=== PATIENT | male | born 1985 | race Caucasian/White ===

== ENCOUNTER 2020-07-27 21:47 | Emergency (ER) | payer MEDICAID ==
[~2020-07-27] VITALS: Ht 175.3 cm; Wt 160.3 kg
[2020-07-27 22:38] LABS: BASO % 0.3 % (0.0-2.0); EOS % 0.3 % (0-4.0); GRAN # 8.3 (1.4-6.5); GRAN % 79.5 % (42.2-75.2); HEMATOCRIT 34.5 % (42.0-52.0); LYMPH # 1.2 (1.2-3.4); LYMPH % 11.8 % (20.0-51.0); MEAN CELL VOLUME 75 fl (80.0-100.0); MEAN CORPUSCULAR HEMOGLOBIN 22 pg (27.0-31.0); MEAN CORPUSCULAR HGB CONC 29 g/dl (33.0-37.0); MEAN PLATELET VOLUME 10.1 fl (7.4-10.4); MONO # 0.8 (0.1-0.6); MONO % 7.8 % (1.7-9.3); PLATELET COUNT 292 K/mm3 (130-400); RED BLOOD COUNT 4.58 M/mm3 (4.20-5.60)
[2020-07-27 22:49] LABS: ALANINE AMINOTRANSFERASE 13 U/L (4-49); ALKALINE PHOSPHATASE 70 U/L (50-136); ANION GAP 7 mmol/L (7-16); AST,SGOT 17 U/L (15-37); BILIRUBIN,TOTAL 0.7 mg/dL (0.0-1.0); BLOOD UREA NITROGEN 23 mg/dL (9-20); CALCIUM 8.9 mg/dL (8.4-10.2); CARBON DIOXIDE 32 mmol/L (22-30); CHLORIDE 98 mmol/L (98-107); CREATININE, serum 1.27 (0.66-1.25); GLUCOSE 107 mg/dL (74-106); LIPASE 92 U/L (23-300); POTASSIUM 4.2 mmol/L (3.4-5.0); SODIUM 138 mmol/L (137-145); TOTAL PROTEIN 7.6 gm/dL (6.4-8.2)
[2020-07-27] MEDS ORDERED: ENTOCORT EC3 MG PO (22:49)
[2020-07-27] MEDS ORDERED: ZYRTEC 10MG10 MG PO (22:50)
[2020-07-27] MEDS ORDERED: PRINZIDE 25 MG-1 TAB PO (22:51)
[2020-07-27] MEDS ORDERED: PRILOTC (22:51)
[2020-07-27] MEDS ORDERED: LEXAPRO20 MG PO (22:52)
[2020-07-27] MEDS ORDERED: INVEGA3 MG PO (22:52)
[2020-07-27] MEDS ORDERED: DESYREL DIVIDO150 M1 PO (22:53)
[2020-07-27 23:00] LABS: TROPONIN-I < 0.012 ng/mL (0.000-0.035)
[2020-07-27 23:14] LABS: MUCOUS Present /lpf; PH 5 (5-8); SQUAMOUS EPITHELIAL None Seen /hpf; URINE APPEARANCE Clear; URINE BACTERIA Rare /hpf; URINE BILIRUBIN Negative (NEGATIVE); URINE BLOOD 1+ (NEGATIVE); URINE COLOR Yellow; URINE GLUCOSE Negative (NEGATIVE); URINE KETONE Negative (NEGATIVE); URINE LEUKOCYTE ESTERASE Negative (NEGATIVE); URINE NITRATE Negative (NEGATIVE); URINE PROTEIN(semi-quant) Negative (NEGATIVE); URINE UROBILINOGEN Negative (NEGATIVE)
[2020-07-27 23:33] LABS: COLLECTION METHOD CLEAN CATCH
[2020-07-28] MEDS ORDERED: ZOFRAN 4MG T4 MG/TAB PO (00:27)
[2020-07-28] MEDS ORDERED: MEDROL 4MG DOSPA4 MG PO (00:27)
[2020-07-28 01:10] VITALS: BP 134/68; PULSE 86; TEMP 98.4
== END 2020-07-28 01:13 | disposition home or self-care (01) ==
LOC: COL.ER 21:47
PROVIDERS: Nurse Practitioner Primary Care
DX: R10.10 Upper abdominal pain, unspecified (principal); R55 Syncope and collapse; I10 Essential (primary) hypertension; F31.9 Bipolar disorder, unspecified; F25.9 Schizoaffective disorder, unspecified; Z88.8 Allergy status to other drugs, medicaments and biological substances; Z79.51 Long term (current) use of inhaled steroids
CPT/HCPCS: C9113; J1100; J2270; J2405; J7030

== ENCOUNTER 2021-09-07 18:37 | Emergency (ER) | payer MEDICAID ==
[~2021-09-07] VITALS: Ht 175.3 cm; Wt 130.5 kg
[~2021-09-07 18:37] MED LIST: DESYREL DIVIDO150 M1 PO; ENTOCORT EC3 MG PO; INVEGA3 MG PO; LEXAPRO20 MG PO; MEDROL 4MG DOSPA4 MG PO; PRILOTC; PRINZIDE 25 MG-1 TAB PO; ZOFRAN 4MG T4 MG/TAB PO; ZYRTEC 10MG10 MG PO
[2021-09-07 18:42] VITALS: TEMP 97.9
[2021-09-07 19:29] LABS: BASO % 0.4 % (0.0-2.0); EOS # 0.1 K/mm3 (0.0-0.7); EOS % 0.6 % (0.0-4.0); GRAN # 6.5 K/mm3 (1.4-6.5); GRAN % 70.2 % (42.2-75.2); HEMATOCRIT 39.3 % (42.0-52.0); HEMOGLOBIN 11.9 g/dl (13.5-18.0); LYMPH # 1.6 K/mm3 (1.2-3.4); LYMPH % 16.8 % (20.0-51.0); MEAN CELL VOLUME 80 fl (80.0-100.0); MEAN CORPUSCULAR HEMOGLOBIN 24 pg (27-31); MEAN CORPUSCULAR HGB CONC 30 g/dl (33.0-37.0); MEAN PLATELET VOLUME 10.2 fl (7.4-10.4); MONO # 1.1 K/mm3 (0.1-0.6); MONO % 11.7 % (1.7-9.3); PLATELET COUNT 251 K/mm3 (130-400); RED BLOOD COUNT 4.94 M/mm3 (4.20-5.60); REDCELL DISTRIBUTION WIDTH-CV 13.2 % (11.5-14.5)
[2021-09-07 19:47] LABS: ALBUMIN 3.3 gm/dL (3.5-5.0); BILIRUBIN,TOTAL 1.9 mg/dL (0.2-1.2); CALCIUM 8.6 mg/dL (8.4-10.2); CREATININE, serum 1.03 mg/dL (0.72-1.25); POTASSIUM 3.8 mmol/L (3.5-4.5); TOTAL PROTEIN 6.9 gm/dL (6.2-8.1)
[2021-09-07 21:09] LABS: COLLECTION METHOD CLEAN CATCH
[2021-09-07 21:18] LABS: MUCOUS Present (NOT PRESENT); PH 7 (5-8); SQUAMOUS EPITHELIAL None Seen /hpf (0-10); URINE APPEARANCE Clear (CLEAR/HAZY); URINE BACTERIA None Seen /hpf (NONE SEEN); URINE BILIRUBIN Negative (NEGATIVE); URINE BLOOD Negative (NEGATIVE); URINE COLOR Yellow (YELLOW); URINE GLUCOSE Negative (NEGATIVE); URINE KETONE Negative (NEGATIVE); URINE LEUKOCYTE ESTERASE Negative (NEGATIVE); URINE NITRATE Negative (NEGATIVE); URINE PROTEIN(semi-quant) Negative (NEGATIVE); URINE RBC 0-2 /hpf (0-2); URINE UROBILINOGEN Negative (NEGATIVE)
[2021-09-07 21:28] VITALS: BP 122/82; PULSE 88
== END 2021-09-07 21:28 | disposition home or self-care (01) ==
LOC: COL.ER 18:37
PROVIDERS: Student in an Organized Health Care Education/Training Program
DX: S09.90XA Unspecified injury of head, initial encounter (principal); S90.01XA Contusion of right ankle, initial encounter; F31.9 Bipolar disorder, unspecified; F20.9 Schizophrenia, unspecified; F10.129 Alcohol abuse with intoxication, unspecified; Z79.899 Other long term (current) drug therapy; W10.9XXA Fall (on) (from) unspecified stairs and steps, initial encounter
CPT/HCPCS: Q9967

== ENCOUNTER 2022-03-28 18:06 | Emergency (ER) | payer MEDICARE, MEDICAID ==
[~2022-03-28] VITALS: Ht 175.3 cm; Wt 110.9 kg
[2022-03-28 18:23] VITALS: TEMP 99.3
[2022-03-28 21:30] LABS: BASO # 0.1 K/mm3 (0.0-0.2); BASO % 0.4 % (0.0-2.0); EOS % 0.2 % (0.0-4.0); GRAN # 10.9 K/mm3 (1.4-6.5); GRAN % 83.6 % (42.2-75.2); HEMATOCRIT 42.2 % (42.0-52.0); HEMOGLOBIN 13.4 g/dl (13.5-18.0); LYMPH % 7.4 % (20.0-51.0); MEAN CELL VOLUME 84 fl (80.0-100.0); MEAN CORPUSCULAR HEMOGLOBIN 27 pg (27-31); MEAN CORPUSCULAR HGB CONC 32 g/dl (33.0-37.0); MEAN PLATELET VOLUME 10.7 fl (7.4-10.4); PLATELET COUNT 229 K/mm3 (130-400); RED BLOOD COUNT 5.01 M/mm3 (4.20-5.60); REDCELL DISTRIBUTION WIDTH-CV 13.6 % (11.5-14.5)
[2022-03-28 21:40] LABS: ALBUMIN 2.9 gm/dL (3.5-5.0); BILIRUBIN,TOTAL 0.6 mg/dL (0.2-1.2); CALCIUM 8.3 mg/dL (8.4-10.2); CREATININE, serum 1.04 mg/dL (0.72-1.25); POTASSIUM 3.8 mmol/L (3.5-4.5); TOTAL PROTEIN 6.3 gm/dL (6.2-8.1)
[2022-03-29 00:15] VITALS: BP 146/108; PULSE 82
== END 2022-03-29 00:15 | disposition home or self-care (01) ==
LOC: COL.ER 18:06
PROVIDERS: Physician Assistant
DX: S01.411A Laceration without foreign body of right cheek and temporomandibular area, initial encounter (principal); S20.222A Contusion of left back wall of thorax, initial encounter; S40.012A Contusion of left shoulder, initial encounter; S40.022A Contusion of left upper arm, initial encounter; D72.829 Elevated white blood cell count, unspecified; Y04.8XXA Assault by other bodily force, initial encounter
CPT/HCPCS: J2270; J3010; L4386; Q9967

== ENCOUNTER 2022-04-05 13:35 | Emergency (ER) | payer MEDICARE, MEDICAID ==
[~2022-04-05] VITALS: Ht 175.3 cm; Wt 112.7 kg
[2022-04-05 13:41] VITALS: TEMP 98.5
[2022-04-05 14:24] LABS: BASO # 0.1 K/mm3 (0.0-0.2); BASO % 0.8 % (0.0-2.0); EOS # 0.2 K/mm3 (0.0-0.7); EOS % 2.1 % (0.0-4.0); GRAN # 5.1 K/mm3 (1.4-6.5); GRAN % 67.8 % (42.2-75.2); HEMOGLOBIN 11.3 g/dl (13.5-18.0); LYMPH # 1.3 K/mm3 (1.2-3.4); MEAN CELL VOLUME 84 fl (80.0-100.0); MEAN CORPUSCULAR HEMOGLOBIN 27 pg (27-31); MEAN CORPUSCULAR HGB CONC 32 g/dl (33.0-37.0); MEAN PLATELET VOLUME 9.7 fl (7.4-10.4); MONO # 0.8 K/mm3 (0.1-0.6); PLATELET COUNT 244 K/mm3 (130-400); RED BLOOD COUNT 4.19 M/mm3 (4.20-5.60); REDCELL DISTRIBUTION WIDTH-CV 13.9 % (11.5-14.5)
[2022-04-05 14:40] LABS: ALANINE AMINOTRANSFERASE 19 U/L (0-55); ALBUMIN 3.1 gm/dL (3.5-5.0); ALKALINE PHOSPHATASE 76 U/L (40-150); ANION GAP 8 mmol/L (7-16); AST,SGOT 19 U/L (5-34); BILIRUBIN,TOTAL 1.3 mg/dL (0.2-1.2); BLOOD UREA NITROGEN 11 mg/dL (9-21); CALCIUM 8.4 mg/dL (8.4-10.2); CARBON DIOXIDE 28 mmol/L (22-29); CHLORIDE 108 mmol/L (98-107); GLUCOSE 102 mg/dL (70-99); POTASSIUM 4.2 mmol/L (3.5-4.5); SODIUM 144 mmol/L (136-145); TOTAL PROTEIN 6.2 gm/dL (6.2-8.1)
[2022-04-05 14:48] LABS: TROPONIN-I < 0.010 ng/mL (0.00-0.033)
[2022-04-05 15:41] VITALS: BP 161/99; PULSE 63
== END 2022-04-05 15:40 | disposition home or self-care (01) ==
LOC: COL.ER 13:35
PROVIDERS: Emergency Medicine
DX: S80.211A Abrasion, right knee, initial encounter (principal); R07.89 Other chest pain; R07.81 Pleurodynia; Z20.822 Contact with and (suspected) exposure to COVID-19; Z28.310 Unvaccinated for COVID-19; W18.30XA Fall on same level, unspecified, initial encounter
CPT/HCPCS: A9284

== ENCOUNTER 2022-05-28 23:46 | Emergency (ER) | payer MEDICARE, MEDICAID ==
[~2022-05-28] VITALS: Ht 175.3 cm; Wt 105.0 kg
[2022-05-29 00:18] VITALS: BP 154/92; TEMP 98.4
[2022-05-29] MEDS ORDERED: NORCO 325 MG-51 TAB PO (00:42)
[2022-05-29] MEDS ORDERED: AMOXICILLIN 8751 TAB PO (00:42)
[2022-05-29 00:58] VITALS: PULSE 58
== END 2022-05-29 00:58 | disposition home or self-care (01) ==
LOC: COL.ER 23:46
DX: S02.5XXA Fracture of tooth (traumatic), initial encounter for closed fracture (principal); H66.91 Otitis media, unspecified, right ear; K04.7 Periapical abscess without sinus; K02.9 Dental caries, unspecified; X58.XXXA Exposure to other specified factors, initial encounter